=== PATIENT | female | born 1945 | race African-American/Black ===

== ENCOUNTER 2017-02-17 03:56 | Inpatient (IN) ==
[2017-02-17] MEDS ORDERED: FUROSEMIDE 100 MG/10 ML VIAL IV STA (04:28)
[2017-02-17] MEDS ORDERED: FUROSEMIDE 40 MG/4 ML VIAL ONE ×2 (04:35→09:16)
[2017-02-17 05:18] LABS: VBG Base Excess 2.8 MEQ/L (0-4); VBG HCO3 26.9 MEQ/L (24-28); VBG Oxygen Saturation 97.2 %; VBG PCO2 48.7 MMHG (41-51); VBG PH 7.378; VBG PO2 90.8 MMHG (17-40)
[2017-02-17 05:40] LABS: Basophils # 0.1 10*3/uL (0.0-0.2); Basophils % 0.9 % (0.0-0.8); Eosinophils # 0.4 10*3/uL (0.0-0.87); Eosinophils % 4.1 % (0.00-10.9); Hematocrit 33.6 VOL% (35.7-47.0); Hemoglobin 10.5 GM/DL (12.0-16.0); Immature Granulocytes % 0.2 %; Immature Granulocytes Absolute 0.02 #; Lymphocytes # 1.1 10*3/uL (1.4-4.0); Lymphocytes % 13.2 % (21.3-54.2); Mean Corpuscular HGB Conc 31.3 GM/DL (32-36); Mean Corpuscular Hemoglobin 25 PG (27-34); Mean Corpuscular Volume 78.7 FL (87-102); Mean Platelet Volume 10.9 FL (9.6-12.0); Monocytes # 0.5 10*3/uL (0.11-0.8); Monocytes % 5.6 % (1.7-12.7); Neutrophils # 6.5 10*3/uL (1.4-7.4); Platelet Count 278 T/CUMM (130-400); Red Blood Count 4.27 MC/CUMM (3.8-5.5); Red Cell Distribution Width 16.2 % (9.3-17.3); White Blood Count 8.6 T/CUMM (4-12)
[2017-02-17 05:51] LABS: Alanine Aminotransferase 13 U/L (13-56); Albumin 3.1 G/DL (3.4-5.0); Alkaline Phosphatase 111 U/L (45-117); Aspartate Amino Transferase 16 U/L (0-37); Bilirubin,Total < 0.39 MG/DL (0.2-1.0); Blood Urea Nitrogen 23 MG/DL (7-18); Calcium 9.5 MG/DL (8.5-10.1); Glucose 187 MG/DL (74-106); Osmolality,Calculated 287.4 MOS/KG (273-304); Potassium 3.6 MMOL/L (3.5-5.1); Sodium 140 MMOL/L (136-145)
[2017-02-17 05:52] LABS: Troponin I Only 0.093 NG/ML (0.00-0.045)
[2017-02-17] MEDS ORDERED: NITROGLYCERIN 2% OINT 1 INCH/GM PACK TOP STA (06:14)
[2017-02-17] MEDS ORDERED: NITROGLYCERIN 2% OINT 1 INCH/GM PACK TOP ONE (06:28)
[2017-02-17] MEDS: FUROSEMIDE 40 MG/4 ML VIAL IV SCH ×2 (09:17→17:38)
[2017-02-17] MEDS ORDERED: ONDANSETRON 4 MG/2 ML VIAL IV PRN (14:01)
[2017-02-17] MEDS ORDERED: MAGNESIUM HYDROXIDE SUSP 30 ML UDCUP PO PRN (14:01)
[2017-02-17] MEDS ORDERED: DEXTROSE 50% 25 GM/50 ML VIAL IV PRN (14:02)
[2017-02-17] MEDS ORDERED: GLUCAGON 1 MG VIAL IM PRN (14:02)
[2017-02-17] MEDS: cefTRIAXone 1,000 MG in SYRINGE 1 EACH IV SCH (14:15)
[2017-02-17] MEDS ORDERED: cefTRIAXone 1,000 MG VIAL ONE (14:17)
[2017-02-17] MEDS ORDERED: AZITHROMYCIN 500 MG VIAL IV ONE (14:17)
[2017-02-17 14:38] LABS: Calcium 9.5 MG/DL (8.5-10.1); Magnesium 1.4 MG/DL (1.8-2.4); Osmolality,Calculated 286.4 MOS/KG (273-304); Potassium 3.5 MMOL/L (3.5-5.1)
[2017-02-17] MEDS: AZITHROMYCIN INJ 500 MG in SODIUM CHLORIDE 0.9% 250 ML IV SCH (14:45)
[2017-02-17 17:07] LABS: Basophils # 0.1 10*3/uL (0.0-0.2); Eosinophils # 0.4 10*3/uL (0.0-0.87); Eosinophils % 3.7 % (0.00-10.9); Hematocrit 37.6 VOL% (35.7-47.0); Hemoglobin 11.7 GM/DL (12.0-16.0); Immature Granulocytes % 0.4 %; Immature Granulocytes Absolute 0.04 #; Lymphocytes # 2.4 10*3/uL (1.4-4.0); Lymphocytes % 21.5 % (21.3-54.2); Mean Corpuscular HGB Conc 31.1 GM/DL (32-36); Mean Corpuscular Hemoglobin 25 PG (27-34); Mean Corpuscular Volume 79.3 FL (87-102); Mean Platelet Volume 10.2 FL (9.6-12.0); Monocytes # 0.8 10*3/uL (0.11-0.8); Neutrophils # 7.3 10*3/uL (1.4-7.4); Neutrophils % 66.4 % (38.7-73.9); Platelet Count 322 T/CUMM (130-400); Red Blood Count 4.74 MC/CUMM (3.8-5.5); Red Cell Distribution Width 15.9 % (9.3-17.3)
[2017-02-17] MEDS: metFORMIN 500 MG TABLET PO SCH (17:41)
[2017-02-17] MEDS: INSULIN LISPRO 100 UNIT/ML SUBCUT SCH ×2 (18:03→22:09)
[2017-02-17] MEDS: INSULIN NPH/REGULAR 70/30 100 UNIT/ML SUBCUT SCH (19:14)
[2017-02-17] MEDS: traMADol 50 MG TABLET PO PRN (19:38)
[2017-02-17] MEDS: SIMVASTATIN 40 MG TABLET PO SCH (22:09)
[2017-02-17] MEDS: cloNIDine 0.1 MG TABLET PO SCH (22:09)
[2017-02-17] MEDS: glipiZIDE 10 MG TABLET PO SCH (22:09)
[2017-02-18 05:20] LABS: Basophils # 0.1 10*3/uL (0.0-0.2); Basophils % 0.9 % (0.0-0.8); Eosinophils # 0.4 10*3/uL (0.0-0.87); Eosinophils % 4.2 % (0.00-10.9); Hematocrit 34.8 VOL% (35.7-47.0); Hemoglobin 10.8 GM/DL (12.0-16.0); Immature Granulocytes % 0.3 %; Immature Granulocytes Absolute 0.03 #; Lymphocytes # 2.2 10*3/uL (1.4-4.0); Lymphocytes % 23.3 % (21.3-54.2); Mean Corpuscular Hemoglobin 25 PG (27-34); Mean Corpuscular Volume 79.5 FL (87-102); Mean Platelet Volume 10.9 FL (9.6-12.0); Monocytes # 1.1 10*3/uL (0.11-0.8); Monocytes % 11.3 % (1.7-12.7); Neutrophils # 5.6 10*3/uL (1.4-7.4); Platelet Count 303 T/CUMM (130-400); Red Blood Count 4.38 MC/CUMM (3.8-5.5); White Blood Count 9.4 T/CUMM (4-12)
[2017-02-18 05:48] LABS: Calcium 9.3 MG/DL (8.5-10.1); Magnesium 1.4 MG/DL (1.8-2.4); Osmolality,Calculated 286.4 MOS/KG (273-304); Potassium 3.5 MMOL/L (3.5-5.1)
[2017-02-18] MEDS: metFORMIN 500 MG TABLET PO SCH ×2 (09:36→18:40)
[2017-02-18] MEDS: cloNIDine 0.1 MG TABLET PO SCH ×2 (09:37→20:08)
[2017-02-18] MEDS: INDAPAMIDE 2.5 MG TABLET PO SCH (09:37)
[2017-02-18] MEDS: glipiZIDE 10 MG TABLET PO SCH ×2 (09:37→20:08)
[2017-02-18] MEDS: INSULIN NPH/REGULAR 70/30 100 UNIT/ML SUBCUT SCH ×2 (09:37→18:40)
[2017-02-18] MEDS: PANTOPRAZOLE 40 MG TABLET PO SCH (09:37)
[2017-02-18] MEDS: ASPIRIN EC 81 MG TABLET PO SCH (09:37)
[2017-02-18] MEDS: INSULIN LISPRO 100 UNIT/ML SUBCUT SCH ×4 (09:37→20:08)
[2017-02-18] MEDS: FUROSEMIDE 40 MG/4 ML VIAL IV SCH ×2 (09:38→18:40)
[2017-02-18] MEDS: AZITHROMYCIN INJ 500 MG in SODIUM CHLORIDE 0.9% 250 ML IV SCH (14:51)
[2017-02-18] MEDS: cefTRIAXone 1,000 MG in SYRINGE 1 EACH IV SCH (14:51)
[2017-02-18] MEDS ORDERED: MAGNESIUM SULF RIDER 2 GM in PREMIX 1 EACH IV ONE (19:05)
[2017-02-18] MEDS ORDERED: POTASSIUM CHLORIDE 20 MEQ TABLET PO ONE (19:09)
[2017-02-18] MEDS ORDERED: ENOXAPARIN 30 MG/0.3 ML SYRINGE ONE (20:01)
[2017-02-18] MEDS: SIMVASTATIN 40 MG TABLET PO SCH (20:08)
[2017-02-18] MEDS: ENOXAPARIN 40 MG/0.4 ML SYRINGE SUBCUT SCH (20:22)
[2017-02-19 06:04] LABS: Basophils # 0.1 10*3/uL (0.0-0.2); Basophils % 0.8 % (0.0-0.8); Eosinophils # 0.6 10*3/uL (0.0-0.87); Eosinophils % 5.4 % (0.00-10.9); Hemoglobin 11.4 GM/DL (12.0-16.0); Immature Granulocytes % 0.3 %; Immature Granulocytes Absolute 0.03 #; Lymphocytes # 2.6 10*3/uL (1.4-4.0); Lymphocytes % 24.6 % (21.3-54.2); Mean Corpuscular HGB Conc 31.7 GM/DL (32-36); Mean Corpuscular Hemoglobin 25 PG (27-34); Mean Corpuscular Volume 77.9 FL (87-102); Mean Platelet Volume 11.2 FL (9.6-12.0); Monocytes % 9.4 % (1.7-12.7); Neutrophils # 6.2 10*3/uL (1.4-7.4); Neutrophils % 59.5 % (38.7-73.9); Platelet Count 320 T/CUMM (130-400); Red Blood Count 4.62 MC/CUMM (3.8-5.5); Red Cell Distribution Width 16.1 % (9.3-17.3); White Blood Count 10.5 T/CUMM (4-12)
[2017-02-19 06:31] LABS: Calcium 9.1 MG/DL (8.5-10.1); Magnesium 1.9 MG/DL (1.8-2.4); Osmolality,Calculated 286.1 MOS/KG (273-304); Potassium 3.3 MMOL/L (3.5-5.1)
[2017-02-19] MEDS ORDERED: LOSARTAN 50 MG TABLET PO PRN (08:05)
[2017-02-19] MEDS: PANTOPRAZOLE 40 MG TABLET PO SCH (08:48)
[2017-02-19] MEDS: AMITRIPTYLINE 25 MG TABLET PO SCH ×2 (08:48→21:55)
[2017-02-19] MEDS: MULTIVITAMIN (CENTRUM) TABLET PO SCH (08:48)
[2017-02-19] MEDS: POTASSIUM CHLORIDE 20 MEQ TABLET PO SCH ×2 (08:48→21:55)
[2017-02-19] MEDS: cloNIDine 0.1 MG TABLET PO SCH ×2 (08:48→21:55)
[2017-02-19] MEDS: metFORMIN 500 MG TABLET PO SCH ×2 (08:48→17:46)
[2017-02-19] MEDS: INDAPAMIDE 2.5 MG TABLET PO SCH (08:48)
[2017-02-19] MEDS: ASPIRIN EC 81 MG TABLET PO SCH (08:48)
[2017-02-19] MEDS: INSULIN LISPRO 100 UNIT/ML SUBCUT SCH ×4 (08:49→21:55)
[2017-02-19] MEDS: INSULIN NPH/REGULAR 70/30 100 UNIT/ML SUBCUT SCH ×2 (08:49→18:52)
[2017-02-19] MEDS: glipiZIDE 10 MG TABLET PO SCH ×2 (08:58→21:55)
[2017-02-19] MEDS: FUROSEMIDE 40 MG/4 ML VIAL IV SCH (11:06)
[2017-02-19] MEDS: CARVEDILOL 3.125 MG TABLET PO SCH ×2 (15:31→21:55)
[2017-02-19] MEDS: FUROSEMIDE 20 MG/2 ML VIAL IV SCH (15:31)
[2017-02-19] MEDS: cefTRIAXone 1,000 MG in SYRINGE 1 EACH IV SCH (15:31)
[2017-02-19] MEDS: AZITHROMYCIN INJ 500 MG in SODIUM CHLORIDE 0.9% 250 ML IV SCH (15:31)
[2017-02-19] MEDS ORDERED: ALBUTEROL/IPRATROPIUM 3 ML NEB RESP TX PRN (20:26)
[2017-02-19] MEDS ORDERED: FUROSEMIDE 20 MG/2 ML VIAL IV ONE (20:55)
[2017-02-19 21:32] LABS: ABG HCO3 32.8 MMOL/L (20-26); ABG Oxygen Saturation 98.5 % (95-100); ABG PCO2 46.4 MM HG (35-48); ABG PH 7.473 (7.35-7.45); ABG TCO2 30.1 MMOL/L (23-27); Allen Test Positive; Pt O2 Delivery Device Venturi Mask
[2017-02-19] MEDS: DIAZEPAM 5 MG TABLET PO SCH (21:55)
[2017-02-19] MEDS: SIMVASTATIN 40 MG TABLET PO SCH (21:55)
[2017-02-19] MEDS: ENOXAPARIN 40 MG/0.4 ML SYRINGE SUBCUT SCH (21:56)
[2017-02-20 05:09] LABS: Basophils # 0.1 10*3/uL (0.0-0.2); Basophils % 0.9 % (0.0-0.8); Eosinophils # 0.8 10*3/uL (0.0-0.87); Eosinophils % 7.3 % (0.00-10.9); Hematocrit 35.6 VOL% (35.7-47.0); Hemoglobin 10.8 GM/DL (12.0-16.0); Immature Granulocytes % 0.3 %; Immature Granulocytes Absolute 0.03 #; Lymphocytes % 27.9 % (21.3-54.2); Mean Corpuscular HGB Conc 30.3 GM/DL (32-36); Mean Corpuscular Hemoglobin 24 PG (27-34); Mean Corpuscular Volume 80.4 FL (87-102); Mean Platelet Volume 10.9 FL (9.6-12.0); Monocytes # 0.9 10*3/uL (0.11-0.8); Monocytes % 8.5 % (1.7-12.7); Neutrophils # 5.8 10*3/uL (1.4-7.4); Neutrophils % 55.1 % (38.7-73.9); Platelet Count 296 T/CUMM (130-400); Red Blood Count 4.43 MC/CUMM (3.8-5.5); White Blood Count 10.6 T/CUMM (4-12)
[2017-02-20 05:42] LABS: Calcium 9.3 MG/DL (8.5-10.1); Magnesium 1.9 MG/DL (1.8-2.4); Osmolality,Calculated 283.3 MOS/KG (273-304); Potassium 3.6 MMOL/L (3.5-5.1)
[2017-02-20 05:45] LABS: Risk Ratio 2.35; VLDL CHOLESTEROL 25.2 MG/DL
[2017-02-20 05:56] LABS: Free T4 (Free Thyroxine) 1.36 NG/DL (0.76-1.46); Thyroid Stimulating Hormone 0.427 uIU/ml (0.358-3.74)
[2017-02-20] MEDS: FUROSEMIDE 20 MG/2 ML VIAL IV SCH (09:45)
[2017-02-20] MEDS: LOSARTAN 50 MG TABLET PO SCH (09:46)
[2017-02-20] MEDS: INDAPAMIDE 2.5 MG TABLET PO SCH (09:46)
[2017-02-20] MEDS: glipiZIDE 10 MG TABLET PO SCH ×2 (09:46→20:58)
[2017-02-20] MEDS: POTASSIUM CHLORIDE 20 MEQ TABLET PO SCH (09:47)
[2017-02-20] MEDS: AMITRIPTYLINE 25 MG TABLET PO SCH ×2 (09:47→20:58)
[2017-02-20] MEDS: cloNIDine 0.1 MG TABLET PO SCH ×2 (09:48→20:57)
[2017-02-20] MEDS: SPIRONOLACTONE 25 MG TABLET PO SCH (09:48)
[2017-02-20] MEDS: PANTOPRAZOLE 40 MG TABLET PO SCH (09:48)
[2017-02-20] MEDS: metFORMIN 500 MG TABLET PO SCH ×2 (09:48→17:38)
[2017-02-20] MEDS: CARVEDILOL 3.125 MG TABLET PO SCH ×2 (09:48→20:57)
[2017-02-20] MEDS ORDERED: HEPARIN/NACL 0.9% 2 UNITS/ML 2,000 ML IV ONE (12:01)
[2017-02-20] MEDS ORDERED: LIDOCAINE 1% 20 ML VIAL ONE (12:01)
[2017-02-20] MEDS ORDERED: diphenhydrAMINE CAP 50 MG CAPSULE ONE (12:09)
[2017-02-20] MEDS ORDERED: DIAZEPAM 5 MG TABLET ONE (12:09)
[2017-02-20] MEDS ORDERED: DIAZEPAM 5 MG TABLET PO ONE (12:14)
[2017-02-20] MEDS ORDERED: diphenhydrAMINE CAP 50 MG CAPSULE PO ONE (12:15)
[2017-02-20] MEDS ORDERED: MIDAZOLAM 2 MG/2 ML VIAL ONE (12:37)
[2017-02-20] MEDS ORDERED: HYDROmorphone 2 MG/1 ML VIAL ONE (12:37)
[2017-02-20] MEDS ORDERED: VERAPAMIL 5 MG/2 ML VIAL ONE (12:43)
[2017-02-20] MEDS ORDERED: NITROGLYCERIN DRIP 50 MG/250 ML BOTTLE IV ONE (12:43)
[2017-02-20] MEDS ORDERED: ENOXAPARIN 60 MG/0.6 ML SYRINGE ONE (12:45)
[2017-02-20] MEDS: INSULIN LISPRO 100 UNIT/ML SUBCUT SCH ×4 (14:39→21:00)
[2017-02-20] MEDS: ASPIRIN EC 81 MG TABLET PO SCH (14:40)
[2017-02-20] MEDS: INSULIN NPH/REGULAR 70/30 100 UNIT/ML SUBCUT SCH ×2 (14:40→21:00)
[2017-02-20] MEDS: cefTRIAXone 1,000 MG in SYRINGE 1 EACH IV SCH (16:19)
[2017-02-20] MEDS: FUROSEMIDE 40 MG/4 ML VIAL IV SCH (16:21)
[2017-02-20] MEDS: ASCORBIC ACID 500 MG TABLET PO SCH (20:57)
[2017-02-20] MEDS: SIMVASTATIN 40 MG TABLET PO SCH (20:58)
[2017-02-20] MEDS: DIAZEPAM 5 MG TABLET PO SCH (20:58)
[2017-02-20] MEDS: ENOXAPARIN 40 MG/0.4 ML SYRINGE SUBCUT SCH (21:00)
[2017-02-21 05:05] LABS: Basophils # 0.1 10*3/uL (0.0-0.2); Basophils % 0.8 % (0.0-0.8); Eosinophils # 0.9 10*3/uL (0.0-0.87); Eosinophils % 8.8 % (0.00-10.9); Hematocrit 36.1 VOL% (35.7-47.0); Hemoglobin 11.3 GM/DL (12.0-16.0); Immature Granulocytes % 0.4 %; Immature Granulocytes Absolute 0.04 #; Lymphocytes # 1.9 10*3/uL (1.4-4.0); Lymphocytes % 17.9 % (21.3-54.2); Mean Corpuscular HGB Conc 31.3 GM/DL (32-36); Mean Corpuscular Hemoglobin 25 PG (27-34); Mean Platelet Volume 11.2 FL (9.6-12.0); Monocytes % 9.8 % (1.7-12.7); Neutrophils # 6.6 10*3/uL (1.4-7.4); Neutrophils % 62.3 % (38.7-73.9); Platelet Count 312 T/CUMM (130-400); Red Blood Count 4.51 MC/CUMM (3.8-5.5); Red Cell Distribution Width 15.9 % (9.3-17.3); White Blood Count 10.6 T/CUMM (4-12)
[2017-02-21 05:31] LABS: Calcium 9.4 MG/DL (8.5-10.1); Osmolality,Calculated 288.5 MOS/KG (273-304); Potassium 3.8 MMOL/L (3.5-5.1)
[2017-02-21 07:09] LABS: Apearance,Urine Slightly Hazy (Clear); Bilirubin,Urine Negative (Negative); Blood, Urine Moderate mg/dL (Negative); Glucose,Urine (UA) 50 mg/dL (Negative); Ketones,Urine Negative (Negative); Mucus,Urine Occasional /LPF (Occasional); Nitrite,Urine Negative (Negative); Protein,Urine 100 MG/DL; RBC,Urine 136 /HPF (0-4); Squamous Epithelial Cell,Urine Occasional /HPF (0-10); Urine Color Yellow (Yellow); Urine Specific Gravity 1.015 (1.001-1.035); Urine Urobilinogen < 2.0 EU/DL (0.2-1.0); WBC,Urine 8 /HPF (0-6)
[2017-02-21] MEDS: INSULIN LISPRO 100 UNIT/ML SUBCUT SCH ×4 (09:34→20:29)
[2017-02-21] MEDS: INSULIN NPH/REGULAR 70/30 100 UNIT/ML SUBCUT SCH ×2 (09:35→20:29)
[2017-02-21] MEDS: LOSARTAN 50 MG TABLET PO SCH (09:38)
[2017-02-21] MEDS: FUROSEMIDE 40 MG/4 ML VIAL IV SCH ×2 (09:38→16:03)
[2017-02-21] MEDS: AMITRIPTYLINE 25 MG TABLET PO SCH ×2 (09:38→20:28)
[2017-02-21] MEDS: CARVEDILOL 3.125 MG TABLET PO SCH (09:39)
[2017-02-21] MEDS: MULTIVITAMIN (CENTRUM) TABLET PO SCH (09:39)
[2017-02-21] MEDS: glipiZIDE 10 MG TABLET PO SCH ×2 (09:39→20:28)
[2017-02-21] MEDS: ASCORBIC ACID 500 MG TABLET PO SCH ×2 (09:39→20:28)
[2017-02-21] MEDS: SPIRONOLACTONE 25 MG TABLET PO SCH (09:40)
[2017-02-21] MEDS: POTASSIUM CHLORIDE 20 MEQ TABLET PO SCH (09:40)
[2017-02-21] MEDS: PANTOPRAZOLE 40 MG TABLET PO SCH (09:40)
[2017-02-21] MEDS: cloNIDine 0.1 MG TABLET PO SCH ×2 (09:40→20:28)
[2017-02-21] MEDS: ASPIRIN EC 81 MG TABLET PO SCH (09:41)
[2017-02-21] MEDS: INDAPAMIDE 2.5 MG TABLET PO SCH (09:44)
[2017-02-21] MEDS: metFORMIN 500 MG TABLET PO SCH ×2 (11:55→17:13)
[2017-02-21] MEDS: cefTRIAXone 1,000 MG in SYRINGE 1 EACH IV SCH (16:04)
[2017-02-21] MEDS: SIMVASTATIN 40 MG TABLET PO SCH (20:28)
[2017-02-21] MEDS: DIAZEPAM 5 MG TABLET PO SCH (20:29)
[2017-02-21] MEDS: CARVEDILOL 6.25 MG TABLET PO SCH (20:29)
[2017-02-21] MEDS: ENOXAPARIN 40 MG/0.4 ML SYRINGE SUBCUT SCH (20:30)
[2017-02-22 04:56] LABS: Basophils # 0.1 10*3/uL (0.0-0.2); Basophils % 0.8 % (0.0-0.8); Eosinophils # 0.4 10*3/uL (0.0-0.87); Eosinophils % 4.1 % (0.00-10.9); Hematocrit 37.9 VOL% (35.7-47.0); Hemoglobin 11.6 GM/DL (12.0-16.0); Immature Granulocytes % 0.2 %; Immature Granulocytes Absolute 0.02 #; Lymphocytes # 1.4 10*3/uL (1.4-4.0); Lymphocytes % 13.2 % (21.3-54.2); Mean Corpuscular HGB Conc 30.6 GM/DL (32-36); Mean Corpuscular Hemoglobin 25 PG (27-34); Mean Corpuscular Volume 80.5 FL (87-102); Mean Platelet Volume 11.9 FL (9.6-12.0); Monocytes # 0.8 10*3/uL (0.11-0.8); Monocytes % 7.8 % (1.7-12.7); Neutrophils % 73.9 % (38.7-73.9); Platelet Count 261 T/CUMM (130-400); Red Blood Count 4.71 MC/CUMM (3.8-5.5); Red Cell Distribution Width 15.9 % (9.3-17.3); White Blood Count 10.8 T/CUMM (4-12)
[2017-02-22 05:17] LABS: Calcium 9.6 MG/DL (8.5-10.1); Osmolality,Calculated 289.5 MOS/KG (273-304); Potassium 4.1 MMOL/L (3.5-5.1)
[2017-02-22] MEDS: ASCORBIC ACID 500 MG TABLET PO SCH ×2 (09:00→21:38)
[2017-02-22] MEDS: glipiZIDE 10 MG TABLET PO SCH ×2 (09:00→21:38)
[2017-02-22] MEDS: AMITRIPTYLINE 25 MG TABLET PO SCH ×2 (09:01→21:38)
[2017-02-22] MEDS: CARVEDILOL 6.25 MG TABLET PO SCH (09:01)
[2017-02-22] MEDS: SPIRONOLACTONE 25 MG TABLET PO SCH (09:01)
[2017-02-22] MEDS: INDAPAMIDE 2.5 MG TABLET PO SCH (09:01)
[2017-02-22] MEDS: ASPIRIN EC 81 MG TABLET PO SCH (09:01)
[2017-02-22] MEDS: cloNIDine 0.1 MG TABLET PO SCH (09:02)
[2017-02-22] MEDS: POTASSIUM CHLORIDE 20 MEQ TABLET PO SCH (09:02)
[2017-02-22] MEDS: PANTOPRAZOLE 40 MG TABLET PO SCH (09:02)
[2017-02-22] MEDS: INSULIN NPH/REGULAR 70/30 100 UNIT/ML SUBCUT SCH ×2 (09:02→22:10)
[2017-02-22] MEDS: LOSARTAN 50 MG TABLET PO SCH (09:02)
[2017-02-22] MEDS: INSULIN LISPRO 100 UNIT/ML SUBCUT SCH ×4 (09:02→22:16)
[2017-02-22] MEDS ORDERED: TUBERCULIN SKIN TEST 0.1 ML SYRINGE INTRADERM ONE (15:16)
[2017-02-22] MEDS: FUROSEMIDE 40 MG TABLET PO SCH (16:04)
[2017-02-22] MEDS: cefTRIAXone 1,000 MG in SYRINGE 1 EACH IV SCH (16:06)
[2017-02-22] MEDS: DIAZEPAM 5 MG TABLET PO SCH (21:38)
[2017-02-22] MEDS: CARVEDILOL 12.5 MG TABLET PO SCH (21:38)
[2017-02-22] MEDS: SIMVASTATIN 40 MG TABLET PO SCH (21:38)
[2017-02-22] MEDS: ENOXAPARIN 40 MG/0.4 ML SYRINGE SUBCUT SCH (21:39)
[2017-02-23 05:20] LABS: Basophils # 0.1 10*3/uL (0.0-0.2); Basophils % 0.9 % (0.0-0.8); Eosinophils % 11.3 % (0.00-10.9); Hematocrit 35.4 VOL% (35.7-47.0); Hemoglobin 11.2 GM/DL (12.0-16.0); Immature Granulocytes % 0.2 %; Immature Granulocytes Absolute 0.02 #; Lymphocytes % 23.1 % (21.3-54.2); Mean Corpuscular HGB Conc 31.6 GM/DL (32-36); Mean Corpuscular Hemoglobin 25 PG (27-34); Mean Corpuscular Volume 78.8 FL (87-102); Mean Platelet Volume 10.9 FL (9.6-12.0); Monocytes # 0.9 10*3/uL (0.11-0.8); Monocytes % 9.8 % (1.7-12.7); Neutrophils # 4.7 10*3/uL (1.4-7.4); Neutrophils % 54.7 % (38.7-73.9); Platelet Count 318 T/CUMM (130-400); Red Blood Count 4.49 MC/CUMM (3.8-5.5); Red Cell Distribution Width 15.9 % (9.3-17.3); White Blood Count 8.7 T/CUMM (4-12)
[2017-02-23 05:50] LABS: Calcium 9.7 MG/DL (8.5-10.1); Osmolality,Calculated 279.7 MOS/KG (273-304); Potassium 3.9 MMOL/L (3.5-5.1)
[2017-02-23 06:23] LABS: Eosinophils 11 % (0-10); Giant Platelets Few; Hypochromasia 1+; Lymphocytes 21 % (20-55); Platelet Estimate Adequate; Segmented Neutrophils 61 % (50-85); Total Cells Counted 100
[2017-02-23] MEDS: INSULIN LISPRO 100 UNIT/ML SUBCUT SCH ×4 (07:46→20:19)
[2017-02-23] MEDS: glipiZIDE 10 MG TABLET PO SCH ×2 (09:06→20:18)
[2017-02-23] MEDS: ASCORBIC ACID 500 MG TABLET PO SCH ×2 (09:06→20:18)
[2017-02-23] MEDS: traMADol 50 MG TABLET PO PRN (09:07)
[2017-02-23] MEDS: CARVEDILOL 12.5 MG TABLET PO SCH ×2 (09:07→20:18)
[2017-02-23] MEDS: INDAPAMIDE 2.5 MG TABLET PO SCH (09:07)
[2017-02-23] MEDS: FUROSEMIDE 40 MG TABLET PO SCH ×2 (09:07→16:45)
[2017-02-23] MEDS: AMITRIPTYLINE 25 MG TABLET PO SCH ×2 (09:07→20:18)
[2017-02-23] MEDS: LOSARTAN 50 MG TABLET PO SCH (09:07)
[2017-02-23] MEDS: SPIRONOLACTONE 25 MG TABLET PO SCH (09:08)
[2017-02-23] MEDS: PANTOPRAZOLE 40 MG TABLET PO SCH (09:08)
[2017-02-23] MEDS: POTASSIUM CHLORIDE 20 MEQ TABLET PO SCH (09:08)
[2017-02-23] MEDS: ASPIRIN EC 81 MG TABLET PO SCH (09:08)
[2017-02-23] MEDS: MULTIVITAMIN (CENTRUM) TABLET PO SCH (09:09)
[2017-02-23] MEDS: INSULIN NPH/REGULAR 70/30 100 UNIT/ML SUBCUT SCH ×2 (09:09→20:26)
[2017-02-23] MEDS: cefTRIAXone 1,000 MG in SYRINGE 1 EACH IV SCH (15:00)
[2017-02-23] MEDS: SIMVASTATIN 40 MG TABLET PO SCH (20:18)
[2017-02-23] MEDS: DIAZEPAM 5 MG TABLET PO SCH (20:18)
[2017-02-23] MEDS: ENOXAPARIN 40 MG/0.4 ML SYRINGE SUBCUT SCH (20:19)
[2017-02-24] MEDS: INSULIN LISPRO 100 UNIT/ML SUBCUT SCH ×4 (08:31→20:16)
[2017-02-24] MEDS: INSULIN NPH/REGULAR 70/30 100 UNIT/ML SUBCUT SCH ×2 (08:31→20:21)
[2017-02-24] MEDS: SPIRONOLACTONE 25 MG TABLET PO SCH (08:32)
[2017-02-24] MEDS: INDAPAMIDE 2.5 MG TABLET PO SCH (08:32)
[2017-02-24] MEDS: CARVEDILOL 12.5 MG TABLET PO SCH ×2 (08:32→20:16)
[2017-02-24] MEDS: PANTOPRAZOLE 40 MG TABLET PO SCH (08:32)
[2017-02-24] MEDS: AMITRIPTYLINE 25 MG TABLET PO SCH ×2 (08:32→20:16)
[2017-02-24] MEDS: FUROSEMIDE 40 MG TABLET PO SCH ×2 (08:32→16:57)
[2017-02-24] MEDS: ASPIRIN EC 81 MG TABLET PO SCH (08:32)
[2017-02-24] MEDS: ASCORBIC ACID 500 MG TABLET PO SCH ×2 (08:32→20:15)
[2017-02-24] MEDS: POTASSIUM CHLORIDE 20 MEQ TABLET PO SCH (08:32)
[2017-02-24] MEDS: glipiZIDE 10 MG TABLET PO SCH ×2 (08:32→20:15)
[2017-02-24] MEDS: metFORMIN 500 MG TABLET PO SCH ×2 (08:32→16:57)
[2017-02-24] MEDS: LOSARTAN 50 MG TABLET PO SCH (08:32)
[2017-02-24] MEDS: cefTRIAXone 1,000 MG in SYRINGE 1 EACH IV SCH (14:00)
[2017-02-24] MEDS: DIAZEPAM 5 MG TABLET PO SCH (20:15)
[2017-02-24] MEDS: SIMVASTATIN 40 MG TABLET PO SCH (20:16)
[2017-02-24] MEDS: ENOXAPARIN 40 MG/0.4 ML SYRINGE SUBCUT SCH (20:16)
[2017-02-25] MEDS: INDAPAMIDE 2.5 MG TABLET PO SCH (08:56)
[2017-02-25] MEDS: FUROSEMIDE 40 MG TABLET PO SCH ×2 (08:56→15:53)
[2017-02-25] MEDS: ASCORBIC ACID 500 MG TABLET PO SCH ×2 (08:56→21:00)
[2017-02-25] MEDS: glipiZIDE 10 MG TABLET PO SCH ×2 (08:56→21:00)
[2017-02-25] MEDS: SPIRONOLACTONE 25 MG TABLET PO SCH (08:56)
[2017-02-25] MEDS: LOSARTAN 50 MG TABLET PO SCH (08:56)
[2017-02-25] MEDS: MULTIVITAMIN (CENTRUM) TABLET PO SCH (08:56)
[2017-02-25] MEDS: AMITRIPTYLINE 25 MG TABLET PO SCH ×2 (08:57→21:00)
[2017-02-25] MEDS: CARVEDILOL 12.5 MG TABLET PO SCH ×2 (08:57→21:00)
[2017-02-25] MEDS: metFORMIN 500 MG TABLET PO SCH ×2 (08:57→17:42)
[2017-02-25] MEDS: ASPIRIN EC 81 MG TABLET PO SCH (08:57)
[2017-02-25] MEDS: POTASSIUM CHLORIDE 20 MEQ TABLET PO SCH (08:57)
[2017-02-25] MEDS: INSULIN LISPRO 100 UNIT/ML SUBCUT SCH ×4 (08:57→21:01)
[2017-02-25] MEDS: PANTOPRAZOLE 40 MG TABLET PO SCH (08:57)
[2017-02-25] MEDS: INSULIN NPH/REGULAR 70/30 100 UNIT/ML SUBCUT SCH ×2 (08:57→21:01)
[2017-02-25] MEDS: cefTRIAXone 1,000 MG in SYRINGE 1 EACH IV SCH (15:53)
[2017-02-25] MEDS: SIMVASTATIN 40 MG TABLET PO SCH (21:00)
[2017-02-25] MEDS: DIAZEPAM 5 MG TABLET PO SCH (21:00)
[2017-02-25] MEDS: ENOXAPARIN 40 MG/0.4 ML SYRINGE SUBCUT SCH (21:01)
[2017-02-26 05:04] LABS: Basophils # 0.1 10*3/uL (0.0-0.2); Basophils % 0.8 % (0.0-0.8); Eosinophils % 11.7 % (0.00-10.9); Hematocrit 36.9 VOL% (35.7-47.0); Immature Granulocytes % 0.4 %; Immature Granulocytes Absolute 0.03 #; Lymphocytes # 2.1 10*3/uL (1.4-4.0); Lymphocytes % 24.6 % (21.3-54.2); Mean Corpuscular HGB Conc 29.8 GM/DL (32-36); Mean Corpuscular Hemoglobin 24 PG (27-34); Mean Corpuscular Volume 81.3 FL (87-102); Mean Platelet Volume 11.4 FL (9.6-12.0); Monocytes # 1.1 10*3/uL (0.11-0.8); Monocytes % 13.4 % (1.7-12.7); Neutrophils # 4.1 10*3/uL (1.4-7.4); Neutrophils % 49.1 % (38.7-73.9); Platelet Count 352 T/CUMM (130-400); Red Blood Count 4.54 MC/CUMM (3.8-5.5); Red Cell Distribution Width 15.6 % (9.3-17.3); White Blood Count 8.4 T/CUMM (4-12)
[2017-02-26 05:30] LABS: Eosinophils 17 % (0-10); Giant Platelets Few; Hypochromasia 1+; Lymphocytes 25 % (20-55); Ovalocytes Slight; Platelet Estimate Adequate; Segmented Neutrophils 48 % (50-85); Total Cells Counted 100
[2017-02-26 05:35] LABS: Calcium 9.6 MG/DL (8.5-10.1); Osmolality,Calculated 285.5 MOS/KG (273-304); Potassium 3.6 MMOL/L (3.5-5.1)
[2017-02-26] MEDS: CARVEDILOL 12.5 MG TABLET PO SCH (09:31)
[2017-02-26] MEDS: AMITRIPTYLINE 25 MG TABLET PO SCH (09:31)
[2017-02-26] MEDS: INDAPAMIDE 2.5 MG TABLET PO SCH (09:31)
[2017-02-26] MEDS: glipiZIDE 10 MG TABLET PO SCH (09:31)
[2017-02-26] MEDS: SPIRONOLACTONE 25 MG TABLET PO SCH (09:31)
[2017-02-26] MEDS: metFORMIN 500 MG TABLET PO SCH (09:31)
[2017-02-26] MEDS: ASPIRIN EC 81 MG TABLET PO SCH (09:32)
[2017-02-26] MEDS: INSULIN NPH/REGULAR 70/30 100 UNIT/ML SUBCUT SCH (09:32)
[2017-02-26] MEDS: POTASSIUM CHLORIDE 20 MEQ TABLET PO SCH (09:32)
[2017-02-26] MEDS: LOSARTAN 50 MG TABLET PO SCH (09:32)
[2017-02-26] MEDS: PANTOPRAZOLE 40 MG TABLET PO SCH (09:32)
[2017-02-26] MEDS: ASCORBIC ACID 500 MG TABLET PO SCH (09:48)
[2017-02-26] MEDS: FUROSEMIDE 40 MG TABLET PO SCH (09:48)
[2017-02-26] MEDS: INSULIN LISPRO 100 UNIT/ML SUBCUT SCH ×2 (09:49→13:02)
[2017-02-26 12:00] VITALS: BP 129/72
== END 2017-02-26 16:01 | disposition swing bed (61) | DRG 286 ==
LOC: EDUNIT# → EDBD → N.ED 03:56 → N.EDINP 06:12 → N.TELES 15:40
PROVIDERS: ADMIT Family Medicine; ATTEND Family Medicine
PROC: CLCCHCL (ICD-10-PCS; 2017-02-20 13:00)

== ENCOUNTER 2021-08-14 21:12 | Observation (INO) ==
[2021-08-15 00:35] LABS: Basophils % 0.3 % (0.0-0.8); Eosinophils # 0.2 10*3/uL (0.0-0.87); Eosinophils % 1.3 % (0.00-10.9); Hematocrit 35.3 VOL% (35.7-47.0); Hemoglobin 11.1 GM/DL (12.0-16.0); Lymphocytes # 1.3 10*3/uL (1.4-4.0); Lymphocytes % 10.1 % (21.3-54.2); Mean Corpuscular HGB Conc 31.4 GM/DL (32-36); Mean Corpuscular Volume 85.7 FL (87-102); Mean Platelet Volume 10.1 FL (9.6-12.0); Monocytes # 0.7 10*3/uL (0.11-0.8); Monocytes % 5.6 % (1.7-12.7); Neutrophils % 82.1 % (38.7-73.9); Platelet Count 282 T/CUMM (130-400); Red Blood Count 4.12 MC/CUMM (3.8-5.5); Red Cell Distribution Width 15.2 % (9.3-17.3); White Blood Count 12.4 T/CUMM (4-12)
[2021-08-15 00:46] LABS: INR 0.9; PT Patient Result 10.2 SECS (10.5-12.0)
[2021-08-15 00:54] LABS: Alanine Aminotransferase 21 U/L (13-56); Albumin 3.6 G/DL (3.4-5.0); Alkaline Phosphatase 160 U/L (45-117); Aspartate Amino Transferase 25 U/L (0-37); Bilirubin,Total < 0.39 MG/DL (0.20-1.00); Blood Urea Nitrogen 63 MG/DL (7-18); Calcium 10.9 MG/DL (8.5-10.1); Carbon Dioxide 26 MMOL/L (21-32); Chloride 100 MMOL/L (98-107); Glucose 291 MG/DL (74-106); Osmolality,Calculated 296.2 MOS/KG (273-304); Potassium 4.3 MMOL/L (3.5-5.1); Sodium 134 MMOL/L (136-145); Total Protein 8.1 G/DL (6.4-8.2)
[2021-08-15] MEDS ORDERED: PANTOPRAZOLE INJ 80 MG in SODIUM CHLORIDE 0.9% 100 ML IV ONE ×2 (01:02→01:30)
[2021-08-15] MEDS ORDERED: SODIUM CHLORIDE 0.9% 1,000 ML IV STA (01:08)
[2021-08-15] MEDS ORDERED: ONDANSETRON 4 MG/2 ML VIAL IV PRN (02:23)
[2021-08-15] MEDS ORDERED: ACETAMINOPHEN 325 MG TABLET PO PRN (02:23)
[2021-08-15] MEDS: DOCUSATE SODIUM 100 MG CAPSULE PO SCH ×3 (02:53→21:37)
[2021-08-15 05:33] LABS: Basophils # 0.1 10*3/uL (0.0-0.2); Basophils % 0.5 % (0.0-0.8); Eosinophils # 0.1 10*3/uL (0.0-0.87); Eosinophils % 1.2 % (0.00-10.9); Hematocrit 34.3 VOL% (35.7-47.0); Hemoglobin 10.8 GM/DL (12.0-16.0); Immature Granulocytes % 0.5 %; Immature Granulocytes Absolute 0.06 #; Lymphocytes # 1.3 10*3/uL (1.4-4.0); Lymphocytes % 10.6 % (21.3-54.2); Mean Corpuscular HGB Conc 31.5 GM/DL (32-36); Mean Corpuscular Volume 86.6 FL (87-102); Monocytes # 0.9 10*3/uL (0.11-0.8); Monocytes % 7.3 % (1.7-12.7); Neutrophils % 79.9 % (38.7-73.9); Platelet Count 258 T/CUMM (130-400); Red Blood Count 3.96 MC/CUMM (3.8-5.5); Red Cell Distribution Width 15.4 % (9.3-17.3)
[2021-08-15 05:36] LABS: Hematocrit 33.7 VOL% (35.7-47.0); Hemoglobin 10.5 GM/DL (12.0-16.0)
[2021-08-15 06:11] LABS: Alanine Aminotransferase 20 U/L (13-56); Albumin 3.1 G/DL (3.4-5.0); Alkaline Phosphatase 163 U/L (45-117); Aspartate Amino Transferase 22 U/L (0-37); Bilirubin,Total < 0.39 MG/DL (0.20-1.00); Blood Urea Nitrogen 57 MG/DL (7-18); Carbon Dioxide 23 MMOL/L (21-32); Chloride 102 MMOL/L (98-107); Glucose 291 MG/DL (74-106); Potassium 4.2 MMOL/L (3.5-5.1); Sodium 136 MMOL/L (136-145)
[2021-08-15] MEDS ORDERED: hydrOXYzine HCL 25 MG TABLET PO PRN (07:48)
[2021-08-15] MEDS: MAGNESIUM CHLORIDE 64 MG TABLET PO SCH ×2 (10:35→21:38)
[2021-08-15] MEDS: cloNIDine 0.1 MG TABLET PO SCH ×2 (10:36→21:37)
[2021-08-15] MEDS: ANASTROZOLE 1 MG TABLET PO SCH (10:36)
[2021-08-15] MEDS: LOSARTAN 50 MG TABLET PO SCH (10:36)
[2021-08-15] MEDS: allopurinoL 100 MG TABLET PO SCH ×2 (10:36→21:37)
[2021-08-15] MEDS: FERROUS SULFATE 325 MG TABLET PO SCH ×2 (10:37→21:37)
[2021-08-15] MEDS: AMITRIPTYLINE 25 MG TABLET PO SCH ×2 (10:37→21:37)
[2021-08-15] MEDS: FUROSEMIDE 40 MG TABLET PO SCH ×2 (10:37→16:58)
[2021-08-15] MEDS: CHOLECALCIFEROL 5,000 UNIT TABLET PO SCH (10:37)
[2021-08-15] MEDS: PANTOPRAZOLE 40 MG VIAL IV SCH ×2 (10:38→21:38)
[2021-08-15] MEDS: carvediloL 12.5 MG TABLET PO SCH ×2 (10:40→21:38)
[2021-08-15] MEDS: CYCLOBENZAPRINE 10 MG TABLET PO SCH ×2 (10:40→21:37)
[2021-08-15] MEDS: SODIUM CHLORIDE 0.45% 1,000 ML IV SCH ×2 (10:44→22:01)
[2021-08-15 11:05] LABS: Hemoglobin 10.5 GM/DL (12.0-16.0)
[2021-08-15] MEDS: INSULIN REGULAR 100 UNIT/ML SUBCUT SCH ×3 (11:48→21:39)
[2021-08-15] MEDS ORDERED: GLUCAGON 1 MG VIAL IM PRN (12:58)
[2021-08-15] MEDS ORDERED: DEXTROSE 10% 250 ML BAG IV PRN (12:58)
[2021-08-15] MEDS ORDERED: LIDOCAINE/PRILOCAINE CREAM 5 GM TUBE TOP ONE (16:00)
[2021-08-15] MEDS: PHENYLEPHRINE 0.25% SUPP RECTAL SCH ×2 (16:57→21:38)
[2021-08-15] MEDS ORDERED: PHENYLEPHRINE 0.25% SUPP RECTAL SCH (21:00)
[2021-08-15] MEDS: SIMVASTATIN 40 MG TABLET PO SCH (21:37)
[2021-08-15] MEDS: ASCORBIC ACID 500 MG TABLET PO SCH (21:38)
[2021-08-16 04:53] LABS: Basophils # 0.1 10*3/uL (0.0-0.2); Basophils % 0.5 % (0.0-0.8); Eosinophils # 0.5 10*3/uL (0.0-0.87); Eosinophils % 4.8 % (0.00-10.9); Hematocrit 32.3 VOL% (35.7-47.0); Hemoglobin 10.1 GM/DL (12.0-16.0); Immature Granulocytes % 0.4 %; Immature Granulocytes Absolute 0.04 #; Lymphocytes # 1.7 10*3/uL (1.4-4.0); Lymphocytes % 16.3 % (21.3-54.2); Mean Corpuscular HGB Conc 31.3 GM/DL (32-36); Mean Corpuscular Volume 86.1 FL (87-102); Mean Platelet Volume 10.3 FL (9.6-12.0); Monocytes % 9.1 % (1.7-12.7); Neutrophils % 68.9 % (38.7-73.9); Platelet Count 235 T/CUMM (130-400); Red Blood Count 3.75 MC/CUMM (3.8-5.5); Red Cell Distribution Width 15.6 % (9.3-17.3); White Blood Count 10.4 T/CUMM (4-12)
[2021-08-16 05:25] LABS: Calcium 9.9 MG/DL (8.5-10.1); Ferritin 158.2 ng/mL (8-252); Osmolality,Calculated 292.8 MOS/KG (273-304); Potassium 3.5 MMOL/L (3.5-5.1); Thyroid Stimulating Hormone 1.32 uIU/ml (0.358-3.74)
[2021-08-16] MEDS: PANTOPRAZOLE 40 MG VIAL IV SCH ×2 (08:56→21:14)
[2021-08-16] MEDS: INSULIN REGULAR 100 UNIT/ML SUBCUT SCH ×4 (11:34→21:14)
[2021-08-16] MEDS: LACTATED RINGERS 1,000 ML IV SCH (12:14)
[2021-08-16] MEDS ORDERED: LIDOCAINE 2% 5 ML VIAL ONE (13:50)
[2021-08-16] MEDS ORDERED: METOPROLOL TARTRATE 5 MG/5 ML VIAL IV ONE (13:50)
[2021-08-16] MEDS ORDERED: propofoL 200 MG/20 ML VIAL IV ONE (13:50)
[2021-08-16] MEDS: LOSARTAN 50 MG TABLET PO SCH (16:09)
[2021-08-16] MEDS: DOCUSATE SODIUM 100 MG CAPSULE PO SCH ×2 (16:09→21:13)
[2021-08-16] MEDS: carvediloL 12.5 MG TABLET PO SCH ×2 (16:09→21:13)
[2021-08-16] MEDS: CHOLECALCIFEROL 5,000 UNIT TABLET PO SCH (16:09)
[2021-08-16] MEDS: MAGNESIUM CHLORIDE 64 MG TABLET PO SCH ×2 (16:09→21:13)
[2021-08-16] MEDS: ASCORBIC ACID 500 MG TABLET PO SCH ×2 (16:09→21:13)
[2021-08-16] MEDS: FERROUS SULFATE 325 MG TABLET PO SCH ×2 (16:09→21:13)
[2021-08-16] MEDS: PHENYLEPHRINE 0.25% SUPP RECTAL SCH ×2 (16:10→21:14)
[2021-08-16] MEDS: allopurinoL 100 MG TABLET PO SCH ×2 (16:10→21:13)
[2021-08-16] MEDS: ANASTROZOLE 1 MG TABLET PO SCH (16:10)
[2021-08-16] MEDS: CYCLOBENZAPRINE 10 MG TABLET PO SCH ×2 (16:10→21:13)
[2021-08-16] MEDS: cloNIDine 0.1 MG TABLET PO SCH ×2 (16:10→21:13)
[2021-08-16] MEDS: FUROSEMIDE 40 MG TABLET PO SCH ×2 (16:10→16:54)
[2021-08-16] MEDS: SODIUM CHLOR 0.45% KCL 20 MEQ 20 MEQ/1,000 ML BAG IV SCH ×2 (16:11→20:58)
[2021-08-16] MEDS: AMITRIPTYLINE 25 MG TABLET PO SCH ×2 (16:11→21:13)
[2021-08-16] MEDS: SIMVASTATIN 40 MG TABLET PO SCH (21:13)
[2021-08-16] MEDS: SODIUM CHLORIDE 0.45% 1,000 ML IV SCH (23:26)
[2021-08-17] MEDS: SODIUM CHLOR 0.45% KCL 20 MEQ 20 MEQ/1,000 ML BAG IV SCH (03:43)
[2021-08-17 05:34] LABS: Basophils # 0.1 10*3/uL (0.0-0.2); Basophils % 0.5 % (0.0-0.8); Eosinophils # 0.5 10*3/uL (0.0-0.87); Hematocrit 33.4 VOL% (35.7-47.0); Hemoglobin 10.3 GM/DL (12.0-16.0); Immature Granulocytes % 0.4 %; Immature Granulocytes Absolute 0.04 #; Lymphocytes # 1.7 10*3/uL (1.4-4.0); Lymphocytes % 15.6 % (21.3-54.2); Mean Corpuscular HGB Conc 30.8 GM/DL (32-36); Mean Corpuscular Volume 86.8 FL (87-102); Mean Platelet Volume 11.2 FL (9.6-12.0); Monocytes % 9.4 % (1.7-12.7); Neutrophils % 69.1 % (38.7-73.9); Platelet Count 253 T/CUMM (130-400); Red Blood Count 3.85 MC/CUMM (3.8-5.5); Red Cell Distribution Width 15.7 % (9.3-17.3); White Blood Count 10.6 T/CUMM (4-12)
[2021-08-17 05:56] LABS: Calcium 9.9 MG/DL (8.5-10.1); Osmolality,Calculated 291.7 MOS/KG (273-304); Potassium 3.8 MMOL/L (3.5-5.1)
[2021-08-17] MEDS ORDERED: DEXTROSE 10% 250 ML BAG IV PRN (07:53)
[2021-08-17] MEDS ORDERED: PANTOPRAZOLE 40 MG TABLET PO SCH (09:00)
[2021-08-17] MEDS ORDERED: INSULIN NPH/REGULAR 70/30 100 UNIT/ML SUBCUT SCH ×2 (09:00→20:00)
[2021-08-17] MEDS: FERROUS SULFATE 325 MG TABLET PO SCH (09:07)
[2021-08-17] MEDS: DOCUSATE SODIUM 100 MG CAPSULE PO SCH (09:08)
[2021-08-17] MEDS: ASCORBIC ACID 500 MG TABLET PO SCH (09:08)
[2021-08-17] MEDS: carvediloL 12.5 MG TABLET PO SCH (09:08)
[2021-08-17] MEDS: LOSARTAN 50 MG TABLET PO SCH (09:08)
[2021-08-17] MEDS: CHOLECALCIFEROL 5,000 UNIT TABLET PO SCH (09:09)
[2021-08-17] MEDS: AMITRIPTYLINE 25 MG TABLET PO SCH (09:09)
[2021-08-17] MEDS: MAGNESIUM CHLORIDE 64 MG TABLET PO SCH (09:09)
[2021-08-17] MEDS: FUROSEMIDE 40 MG TABLET PO SCH (09:10)
[2021-08-17] MEDS: allopurinoL 100 MG TABLET PO SCH (09:10)
[2021-08-17] MEDS: CYCLOBENZAPRINE 10 MG TABLET PO SCH (09:10)
[2021-08-17] MEDS: PHENYLEPHRINE 0.25% SUPP RECTAL SCH (09:11)
[2021-08-17] MEDS: INSULIN REGULAR 100 UNIT/ML SUBCUT SCH ×2 (09:11→12:23)
[2021-08-17] MEDS: cloNIDine 0.1 MG TABLET PO SCH (09:11)
[2021-08-17] MEDS: ANASTROZOLE 1 MG TABLET PO SCH (09:11)
[2021-08-17] MEDS: LACTATED RINGERS 1,000 ML IV SCH (09:28)
[2021-08-17] MEDS ORDERED: ALBUTEROL/IPRATROPIUM 3 ML NEB RESP TX PRN (10:10)
[2021-08-17] MEDS ORDERED: FUROSEMIDE 20 MG/2 ML VIAL IV ONE (10:10)
[2021-08-17 12:21] VITALS: BP 132/75
== END 2021-08-17 13:20 | disposition home or self-care (01) ==
LOC: N.EDINP 21:12 → N.ED 21:12 → N.TELES 08-15 02:53
PROVIDERS: ADMIT Family Medicine; ATTEND Family Medicine